=== PATIENT | female | born 1965 | race Caucasian/White ===

== ENCOUNTER 2025-10-03 15:55 | Emergency (ER) | payer MEDICAID, SELFPAY ==
[2025-10-03 15:56] VITALS: BMI 47.0
--- NOTE | 2025-10-03 16:04 | XR_ITS ---
Examination: CT abdomen and pelvis without contrast. Coronal 3-D reconstructions. Sagittal 2-D reconstructions. Date and time of exam: October 03, 2025, 1615 hours INDICATIONS: Lower abdominal pain with painful urination today CTDI: vol (mGy): 22.6 DLP: (mGycm): 1465 Technique: Axial images of the abdomen have been obtained, 3 mm slice thickness Intravenous contrast material has not been administered. Low dose protocols were performed. One or more of the following dose reduction techniques were used; automated exposure control, adjustment of the mA and/or KV according to patient size, use of iterative reconstruction technique. Findings: Hepatomegaly 21 cm No visualized liver or splenic lesions Absent gallbladder No pancreatic mass No adrenal mass 2 mm nonobstructing right renal calculus Moderate renal scar formation Perinephric stranding No hydronephrosis or ureteral calculi No pericecal inflammatory change No bowel obstruction Absent uterus Contracted urinary bladder with mild urinary bladder wall thickening Moderate osteopenia IMPRESSION: 2 mm nonobstructing right renal calculus Moderate renal scar formation Perinephric stranding, consider urinary tract infection, no ureteral calculi No CT findings of appendicitis or bowel obstruction Cystitis pattern
[2025-10-03 16:08] VITALS: BP 131/78; PULSE 76; RESP 18; TEMP 36.8; O2SAT 95
--- NOTE | 2025-10-03 16:10 | PD.EDRME ---
Rapid Medical Screening Exam RME Arrival date/time: 10/03/25 15:55 59-year-old female presents to the emergency department today for complaint of lower back pain, dysuria ongoing x 1 day Chief Complaint: Urogenital-Female Vital signs: Vital Signs Temperature 98.3 F 10/03/25 16:08 Pulse Rate 76 10/03/25 16:08 Respiratory Rate 18 10/03/25 16:08 Blood Pressure 131/78 H 10/03/25 16:08 Pulse Oximetry (%) 95 10/03/25 16:08 Oxygen Delivery Method Room Air 10/03/25 16:08 Vital signs reviewed by provider: Yes Exam: On exam patient appears to be in pain Clinical Impression: Labs imaging ordered
[2025-10-03 16:54] LABS: Basophils # (Auto) 0.1 Thou/mm3 (0.0-0.2); Basophils % (Auto) 1 % (0-2.5); Eosinophils # (Auto) 0.1 Thou/mm3 (0.0-0.5); Eosinophils % (Auto) 1 % (0-10); Hematocrit 44.3 % (36.0-46.0); Hemoglobin 14.2 g/dL (12.0-16.0); Immature Granulocytes Auto 0.03 Thou/mm3 (0.00-0.00); Lymphocytes # (Auto) 2.6 Thou/mm3 (1.0-4.8); Lymphocytes % (Auto) 25 % (10-50); Mean Corpuscular HGB Conc 32.1 g/dl (31.0-37.0); Mean Corpuscular Hemoglobin 27.2 pg (25.0-35.0); Mean Corpuscular Volume 85 fL (80-100); Monocytes # (Auto) 0.6 Thou/mm3 (0.0-0.8); Monocytes % (Auto) 6 % (0-12); Neutrophils # (Auto) 6.7 Thou/mm3 (1.8-7.7); Neutrophils % (Auto) 66 % (37-80); Nucleated Red Blood Cell # 0.00 Thou/mm3 (0.00-0.00); Nucleated Red Blood Cell % 0 /100 WBC (0); Platelet Count 215 Thou/mm3 (140-440); RDW Standard Deviation 44.7 fL (36.4-46.3); Red Blood Count 5.22 Miln/mm3 (4.00-5.20); White Blood Count 10.1 Thou/mm3 (3.6-11.0)
[2025-10-03 17:10] LABS: Collection Type, Urine Clean Catch
[2025-10-03 17:33] LABS: INR 1.0 (0.9-1.3); Partial Thromboplastin Time 28.5 Seconds (22.0-36.0); Prothrombin Time 10.5 Seconds (9.0-12.2)
[2025-10-03 17:36] LABS: Bacteria,Urine 1+; Bilirubin,Urine Negative (Negative); Blood,Urine 3+ (Negative); Clarity,Urine Turbid (Clear/Hazy); Glucose, Urine Negative (Negative); Ketones,Urine Trace (Negative); Leukocyte Esterase,Urine Negative (Negative); Nitrite,Urine Positive (Negative); PH,Urine 5.5 (5.0-7.0); Protein,Urine 2+ (Neg - Trace); RBC,Urine 10818 /hpf (0-3); Specific Gravity,Urine 1.035 (1.001-1.035); Squamous Epithelial Cell,Urine 10 /hpf (0-5); Urobilinogen,Urine Negative mg/dL (0.0-1.0); WBC,Urine 80 /hpf (0-5)
[2025-10-03 17:45] LABS: Color,Urine Drk-Brown (Lt Yel-Yel); Culture Indicated,Urine Yes
[2025-10-03 17:47] LABS: Alanine Aminotransferase 9 U/L (10-49); Albumin, Serum 4.5 gm/dL (3.5-5.0); Albumin/Globulin Ratio 1.4 (1.2-2.2); Alkaline Phosphatase 81 U/L (46-116); Anion Gap 10 (7-16); Aspartate Amino Transferase 14 U/L (0-34); BUN/Creatinine Ratio 21 Ratio (12-20); Bilirubin,Total 0.3 mg/dL (0.3-1.2); Blood Urea Nitrogen 17 mg/dL (9-23); Calcium 9.3 mg/dL (8.3-10.6); Calcium (Corrected) 9.3 mg/dL (8.5-10.1); Carbon Dioxide 26.6 mMol/L (20.0-31.0); Chloride 107 mMol/L (98-107); Creatinine (Component) 0.8 mg/dL (0.6-1.3); Estimated Creatinine Clearance 98.7 mL/min (>60); Globulin 3.2 gm/dL (2.3-3.5); Glucose 101 mg/dL (74-106); Lipase 63 U/L (12-53); Osmolality,Calculated 288 (275-295); Potassium 3.6 mMol/L (3.4-5.1); Sodium 144 mMol/L (136-145); Total Protein 7.7 gm/dL (5.7-8.2); eGFR > 60 See Note
--- NOTE | 2025-10-03 18:11 | EDNOTE_ITS ---
ED Female Urogenital RME/HPI General Chief complaint: Urogenital-Female Stated complaint: PEEING BLOOD SINCE LAST NIGHT Time Seen by Provider: 10/03/25 16:48 Arrival date/time: 10/03/25 15:55 59-year-old female patient with significant history of chronic debility, asthma, came in with family for evaluation regarding dysuria. Onset of symptoms since yesterday as dysuria, associated with frequency, and hematuria. Patient denies any abdominal pain denies any vomiting denies any fever denies any other compla ints. No medication was taken prior to ER visit. RME / HPI RME / HPI Narrative: 10/03/25 15:55 59-year-old female presents to the emergency department today for complaint of lower back pain, dysuria ongoing x 1 day Exam: On exam patient appears to be in pain Impression: Labs imaging ordered Related Data Home Medications ?Medication ?Instructions ?Recorded ?Confirmed albuterol sulfate 90 mcg/actuation 2 puff inhalation Q 4HR PRN 04/07/17 12/22/21 aerosol inhaler (Proventil HFA) Shortness Of Breath #0 inhalations albuterol sulfate 2.5 mg/3 mL 2.5 mg inhalation Q6H UT N sob 12/22/21 12/22/21 (0.083 %) solution for nebulization cholecalciferol (vitamin D3) 1,250 50,000 unit PO QWEE K 12/22/21 12/22/21 mcg (50,000 unit) capsule gabapentin 300 mg capsule 300 mg PO BID 12/22/2112/22 promethazine-DM 6.25 mg-15 mg/5 mL 5 ml PO Q4H PRN Cou gh 12/22/21 12/22/21 oral syrup Previous Rx's ?Medication ?Instructions ?Recorded fluticasone propionate 44 1 puff inhalation BID #10.6 grams 12/30/21 mcg/actuation HFA aerosol inhaler prednisone 20 mg tablet See Taper PO QDAY #11 tabs 0 12/30/21 cefuroxime axetil 500 mg tablet 500 mg PO BID #14 tabs 10/03/25 phenazopyridine 200 mg tablet 200 mg PO TID 6 doses #6 tabs 10/03/25 (Pyridium) Allergies Allergy/AdvReac Type Severity Reaction Status Date / Time codeine Allergy Severe Swelling Verified 10/03/25 16:01 of Lip/Tongue/Throat lemon Allergy Severe Swelling Verified 10/03/25 16:01 of Lip/Tongue/Throat nitrofurantoin Allergy Severe Hives Verified 10/03/25 16:01 orange Allergy Severe Swelling Verified 10/03/25 16:01 of Lip/Tongue/Throat Review of Systems Review of Systems Narrative Review of Systems: Review of system reviewed and within normal limits except mentioned in HPI ED Exam Narrative Physical exam: VITAL SIGNS: Reviewed. GENERAL APPEARANCE: Alert and interactive, follows commands, no acute distress, HEAD AND FACE: Non-traumatic. ENT: PERRL, pink conjunctivitis, eyelid no trauma, Mucous membrane moist. NECK: Supple, nontender, no nuchal rigidity. CHEST: No tenderness, no crepitus, no paradoxical movement, no retractions. LUNGS: Clear, well ventilated, symmetric, no rales, no wheezing, no ronchi, no stridor, good breath sounds bilaterally. HEART: Regular rate, regular rhythm, no murmur, no gallops. ABDOMEN: Soft, positive bowel sounds, nondistended, no guarding, nontender, no rebound, no masses, RECTAL: Deferred. GENITAL: Deferred. NEUROLOGICAL: Gross motor function intact sensory function intact, Appropriate for age. MUSCULOSKELETAL: low back nontender, full range of motion. EXTREMITIES: Nontender, full range of motion. SKIN: Color pink, dry, no rash, no lacerations, no abrasions, no contusions. LYMPHATICS: Deferred. Course Quality Measures none Orders Category Date Time Status CT abdomen pelvis wo con Stat Exams 10/03/25 16:04 Completed CBC Stat Lab 10/03/25 16:20 Completed Comprehensive Metabolic Panel Stat Lab 10/03/25 16:20 Completed Lipase Stat Lab 10/03/25 16:20 Completed PT [Prothrombin Time with INR] Stat Lab 10/03/25 16:20 Completed PTT [Partial Thromboplastin Time] Stat Lab 10/03/25 16:20 Completed UA, C/S IF [Urinalysis, C/S if Indicated] Stat Lab 10/03/25 16:45 Completed Urine Culture Stat Lab 10/03/25 16:45 Received cefTRIAXone [Rocephin] 1,000 mg Med 10/03/25 18:05 Ordered Lidocaine 1% Pf Vial 5ml [Xylocaine 1% 5 ml] 2.1 ml IM X1 Vital Signs Vital signs: Vital Signs Temperature 98.3 F 10/03/25 16:08 Pulse Rate 76 10/03/25 16:08 Respiratory Rate 18 10/03/25 16:08 Blood Pressure 131/78 H 10/03/25 16:08 Pulse Oximetry (%) 95 10/03/25 16:08 Oxygen Delivery Method Room Air 10/03/25 16:08 Urogenital - Female MDM Narrative MDM Narrative:: 59-year-old female patient with significant history of chronic debility, asthma, came in with family for evaluation regarding dysuria. Onset of symptoms since y esterday as dysuria, associated with frequency, and hematuria. Patient denies any abdominal pain denies any vomiting denies any fever denies any other complaints. No medication was taken prior to ER visit. Laboratory workup did not show any leukocytosis. Urinalysis significant for UTI and hematuria. CT scan of the abdomen pelvis showed cystitis pattern otherwise no acute pathology noted. CMP unremarkable. Results discussed with the patient. Patient is tolerating p.o. fluids. Patient was given ceftriaxone IM and discharged home stable. Patient data External records reviewed:: None Clinical information provided by:: none Social determinants that could affect healthcare access:: none Patient has the following chronic illnesses:: Asthma, chronic debility How is presenting disease/condition affected by chronic disease/condition?: exacerbated by Evaluation data The following diagnostics were reviewed and interpreted by me:: lab results and radiology exam(s) Lab and/or radiology exams considered but not ordered:: None Interpretation Summary: See above Medications / Prescriptions Medications or Prescriptions considered but not ordered:: None Medication administrations:: Medication Administration History Ceftriaxone Sodium 1,000 mg/ (Lidocaine HCl 2.1 ml) 0 mg IM X1 ONE Stop: 10/03/25 18:06 Ceftriaxone IM Consultations Consultation(s) initiated? (list below): No Diagnosis Urogenital Female Differential Diagnosis: urinary tract infection, cystitis and other (Hematuria) Most likely diagnosis given after review of the tests above:: UTI, hematuria Admission Indicated Admission indicated?: not indicated Admission Request Was there a request for admission?: No Disposition Plan Disposition Plan: Discharge Discharge Attestation Discharge Attestation: The patient was given an opportunity to ask questions and understood the discharge instructions. Discharge instructions specifically effects, indications for sooner follow up or return to the emergency department, and the expected course of current diagnosis. Patient condition: Stable Discharge Plan Plan Patient Disposition: HOME (Self Care) Discharge Disposition comment: stable Prescriptions/Referrals Prescriptions/Med Rec: New cefuroxime axetil 500 mg tablet 500 mg PO BID Qty: 14 0RF phenazopyridine [Pyridium] 200 mg tablet 200 mg PO TID Qty: 6 0RF No Action albuterol sulfate [Proventil HFA] 6.7 GM HFA aerosol inhaler 2 puff Inhalation Q4HR PRN (Reason: Shortness Of Breath) Qty: 0 promethazine-DM 6.25-15 mg/5 mL syrup 5 ml PO Q4H PRN (Reason: Cough) Patient Comments: GIVE 5 ML BY MOUTH EVERY 4 TO 6 HOURS NEEDED FOR COUGH AND CONGESTION FOR 10 DAYS gabapentin 300 mg capsule 300 mg PO BID Patient Comments: TAKE 1 CAPSULE BY MOUTH TWICE A DAY albuterol sulfate 2.5 mg /3 mL (0.083 %) solution for nebulization 2.5 mg inhalation Q6H PRN (Reason: sob) cholecalciferol (vitamin D3) 1,250 mcg (50,000 unit) capsule 50,000 unit PO QWEEK Patient Comments: TAKE 1 CAPSULE BY MOUTH ONCE A WEEK Rx Instructions: Tuesdays. fluticasone propionate 44 mcg/actuation HFA aerosol inhaler 1 puff inhalation BID Qty: 10.6 0RF prednisone 20 mg tablet See Taper PO QDAY Qty: 11 0RF Taper: Prednisone Taper 20 mg DAILY for 2 Days and 0 Hour 10 mg DAILY for 2 Days and 0 Hour 5 mg DAILY for 7 Days and 0 Hour Referrals: Ramos Haro MD [Primary Care Provider, Family Practice] - In 1 week Problem List Clinical Impression: UTI (urinary tract infection), Hematuria Patient/Caregiver Discharge Instructions Discharge Activity: activity as tolerated Education Materials: Understanding Urinary Tract ... Additional Instructions: Thank you for the opportunity for serving you today. You are stable for discharged . You are advised to: Follow-up with your PCP in 1 to 2 days Return to ED for worsening of symptoms Increase oral fluids Take medication as prescribed Print Language: Turkish Stand Alone Forms: Edda Award Info., Patient Portal Info Letter ANA M/YOLY Supervising Physician ANA M/YOLY Supervising Physician: MD Rehana
[2025-10-03 18:40] VITALS: BP 127/82; PULSE 58; RESP 18; TEMP 36.7; O2SAT 94
== END 2025-10-03 18:42 | disposition home or self-care (01) ==
PROVIDERS: Nurse Practitioner Primary Care; Emergency Provider Emergency Medicine; PCP Family Medicine
DX: N39.0 Urinary tract infection, site not specified (principal); R31.9 Hematuria, unspecified; R10.30 Lower abdominal pain, unspecified
CPT/HCPCS: 36415; 74176; 80053; 81001; 83690; 85025; 85610; 85730; 87077; 87086; 87186; 96372; 99283; J0696; J3490